=== PATIENT | female | born 1940 | race Caucasian/White ===

== ENCOUNTER 2019-02-01 17:12 | Emergency (ER) | payer MEDICARE ==
[~2019-02-01] VITALS: Ht 160 cm; Wt 81.1 kg
--- NOTE | 2019-02-01 17:27 | ED Cardiac General ---
History of Present Illness General Chief Complaint: Cardiac/General Problems Stated Complaint: HR 145 Source: patient Exam Limitations: no limitations (BRANDON BAUTISTA DO) History of Present Illness Date Seen by Provider: Feb 01, 2019 Time Seen by Provider: 17:20 Initial Comments The patient is a pleasant 78-year-old female who presents for evaluation of tachycardia which started earlier today. She reports a history of a similar episode a while ago and states she was given medications which helped reduce her heart rate and she was able to go home. She denies history of atrial fibrillation and does not know what SVT is. She states that she went golfing earlier today and set of coming to the hospital promptly to be evaluated when she noted the increased heart rate. She reports some mild dizziness. She is alert and oriented 4, calm, and appears to be in no distress at this time. She denies chest pain, nausea or vomiting, fevers or chills, diaphoresis, or syncope. She states that she had a heart catheterization 2 years ago which was unremarkable. Severity: mild Activities at Onset: none NTG SL DRY CLEANING MACHINE OPERATOR HELPER: No ASA po DRY CLEANING MACHINE OPERATOR HELPER: No (BRANDON BAUTISTA DO) Allergies and Home Medications Allergies Coded Allergies: No Known Drug Allergies (Unverified , 02/01/19) Home Medications Clopidogrel Bisulfate 75 Mg Tablet, 75 MG PO DAILY Prescribed by: MIKE MELTON on 02/01/191915 Diltiazem HCl 120 Mg Cap.er.24h, 120 MG PO DAILY Prescribed by: MIKE MELTON on 02/01/191915 Patient Home Medication List Home Medication List Reviewed: Yes (BRANDON BAUTISTA DO) Home Medication List Reviewed: Yes (MIKE MELTON MD) Review of Systems Review of Systems Constitutional: no symptoms reported EENTM: No Symptoms Reported Respiratory: No Symptoms Reported Cardiovascular: Palpitations (tachycardia) Gastrointestinal: No Symptoms Reported Genitourinary: No Symptoms Reported Musculoskeletal: no symptoms reported Skin: no symptoms reported Psychiatric/Neurological: No Symptoms Reported Endocrine: No Symptoms Reported Hematologic/Lymphatic: No Symptoms Reported (BRANDON BAUTISTA DO) All Other Systems Reviewed Negative Unless Noted: Yes (BRANDON BAUTISTA DO) Past Jhhgswn-Fijnti-Smoqaj Hx Past Med/Social Hx: Reviewed Nursing Past Med/Soc Hx (BRANDON BAUTISTA DO) Physical Exam Vital Signs Vital Signs - First Documented 02/01/19 02/01/19 17:17 19:20 Temp 36.6 Pulse 124 Resp 18 B/P (MAP) 159/91 (113) Pulse Ox 95 O2 Delivery Room Air (MIKE MELTON MD) Vital Signs Capillary Refill : (BRANDON BAUTISTA DO) Height, Weight, BMI Height: '" Weight: lbs. oz. kg; BMI Method: General Appearance: No Apparent Distress, WD/WN HEENT: PERRL/EOMI, TMs Normal Neck: Full Range of Motion, Normal Inspection, Non Tender, Supple Respiratory: Chest Non Tender, Normal Breath Sounds, No Accessory Muscle Use, No Respiratory Distress Cardiovascular: No Edema, No Murmur, Tachycardia Gastrointestinal: Normal Bowel Sounds, No Pulsatile Mass, Non Tender, Soft Extremity: Normal Capillary Refill, Normal Range of Motion, Non Tender, No Calf Tenderness Neurologic/Psychiatric: Alert, Oriented x3, No Motor/Sensory Deficits, Normal Mood/Affect Skin: Normal Color, Warm/Dry (BRANDON BAUTISTA DO) Progress/Results/Core Measures Results/Orders Lab Results Laboratory Tests Test 02/01/19 17:40 Range/Units White Blood Count 10.1 4.3-11.0 10^3/uL Red Blood Count 4.57 4.35-5.85 10^6/uL Hemoglobin 13.9 11.5-16.0 G/DL Hematocrit 42 35-52 % Mean Corpuscular Volume 93 80-99 FL Mean Corpuscular Hemoglobin 30 25-34 PG Mean Corpuscular Hemoglobin Concent 33 32-36 G/DL Red Cell Distribution Width 13.1 10.0-14.5 % Platelet Count 294 130-400 10^3/uL Mean Platelet Volume 10.0 7.4-10.4 FL Neutrophils (%) (Auto) 51 42-75 % Lymphocytes (%) (Auto) 38 12-44 % Monocytes (%) (Auto) 8 0-12 % Eosinophils (%) (Auto) 2 0-10 % Basophils (%) (Auto) 1 0-10 % Neutrophils # (Auto) 5.2 1.8-7.8 X 10^3 Lymphocytes # (Auto) 3.8 1.0-4.0 X 10^3 Monocytes # (Auto) 0.9 0.0-1.0 X 10^3 Eosinophils # (Auto) 0.2 0.0-0.3 10^3/uL Basophils # (Auto) 0.1 0.0-0.1 10^3/uL Prothrombin Time 12.6 12.2-14.7 SEC INR Comment 0.9 0.8-1.4 Activated Partial Thromboplast Time 29 24-35 SEC Sodium Level 141 135-145 MMOL/L Potassium Level 3.8 3.6-5.0 MMOL/L Chloride Level 106 98-107 MMOL/L Carbon Dioxide Level 24 21-32 MMOL/L Anion Gap 11 5-14 MMOL/L Blood Urea Nitrogen 16 7-18 MG/DL Creatinine 0.94 0.60-1.30 MG/DL Estimat Glomerular Filtration Rate 57 BUN/Creatinine Ratio 17 Glucose Level 143 H 70-105 MG/DL Calcium Level 9.7 8.5-10.1 MG/DL Corrected Calcium 9.8 8.5-10.1 MG/DL Total Bilirubin 0.4 0.1-1.0 MG/DL Aspartate Amino Transf (AST/SGOT) 21 5-34 U/L Alanine Aminotransferase (ALT/SGPT) 15 0-55 U/L Alkaline Phosphatase 73 40-136 U/L Troponin I < 0.30 <0.30 NG/ML Total Protein 7.2 6.4-8.2 GM/DL Albumin 3.9 3.2-4.5 GM/DL (MIKE MELTON MD) My Orders Orders - MIKE MELTON MD Protime With Inr (02/01/19 18:24) Partial Thromboplastin Time (02/01/19 18:24) Magnesium (02/01/19 18:24) Probnp Fs (02/01/19 18:28) Diltiazem Cd 24 Hr Capsule (Cardizem Cd (02/01/19 18:55) (MIKE MELTON MD) Medications Given in ED Current Medications Medications Dose Ordered Sig/Jonny Route Start Time Stop Time Status Last Admin Dose Admin Diltiazem HCl 20 mg ONCE ONCE IVP 02/01/19 17:45 02/01/19 17:46 DC 02/01/19 18:03 20 MG (MIKE MELTON MD) Vital Signs/I&O 02/01/19 02/01/19 17:17 19:20 Temp 36.6 37.0 Pulse 124 80 Resp 18 20 B/P (MAP) 159/91 (113) 143/79 Pulse Ox 95 96 O2 Delivery Room Air (MIKE MELTON MD) Progress Progress Note : Progress Note @1800 - Pt care transferred from Dr. Bautista to Dr. Melton at this time. Cardizem is helping, pt is flipping between NSR and atrial flutter. If she converts to a NSR anticipate discharge home. If not and needs a cardizem gtt she would need observation. (BRANDON BAUTISTA DO) Progress Note #1: Time: 18:00 Progress Note I assumed care of the patient from Dr. Bautista at shift change. Pt received Diltiazem 20 mg IV and is better rate controlled now but still in atrial fibrill ation with fluctuations from 40s to 110s. Labs show a stable CBC without anemia or elevated WBC count. Chemistry stable without elevated troponin. Progress Note #2: Time: 18:44 Progress Note Discussed with Dr. Mcmahan from cardiology and he recommended having the patient take 120 mg or 240 mg of Cardizem orally for her atrial fibrillation. He also recommended being on Eliquis or Xarelto in addition to the aspirin that she was taking. He stated that if she would call the clinic first thing in the morning he could see her either in clinic tomorrow or he is in clinic again on and he could see her either of those days to be seen as an outpatient and continue with work up and treatment for atrial fibrillation. Progress Note #3: Progress Note I updated the patient and she states that she can not take the Eliquis as it makes her short of breath and gives her chest pain. The same thing happened with Warfarin, Xarelto and another blood thinner. She states she is willing to try Plavix along with her aspirin. I updated her about the follow up with Dr. Mcmahan. She is willing to do that. She will take the oral diltiazem for her heart rate. I explained that she has a risk of blood clots with the atrial fibrillation and she argued that while taking the blood thinners she formed blood clots and has scars on her legs from them as well as still short of breath due to the blood thinners. I told her that I could not force her to take any medicine or do any treatment (MIKE MELTON MD) EKG : Comment EKG@1725 - Atrial flutter with rapid ventricular response, rate of 127, normal axis, no acute ischemic findings noted, no STEMI, reviewed and interpreted by myself (BRANDON BAUTISTA DO) Departure Impression Primary Impression: Atrial fibrillation with rapid ventricular response Disposition: HOME, SELF-CARE Condition: Stable Departure-Patient Inst. Decision time for Depature: 19:13 (MIKE MELTON MD) Referrals: GODFREY MCMAHAN MD SELF,LUIS NICHOLE (PCP/Family) Primary Care Physician Patient Instructions: Atrial Fibrillation (DC) Add. Discharge Instructions: Call Dr. Mcmahan in the morning and they could get you in to the clinic to be seen either Friday or and he could work with you and see you for your Atrial Fibrillation. Take the Diltiazem 120 mg daily to help with controlling your heart rate Continue your Full adult strength aspirin daily to help thin your blood. To try and prevent stroke and blood clots from forming you should also take a stronger anticoagulant as well. All discharge instructions reviewed with patient and/or family. Voiced understanding. Scripts Clopidogrel Bisulfate (Plavix) 75 Mg Tablet 75 MG PO DAILY for clot prevention for 30 Days, #30 TAB 0 Refills Prov: MIKE MELTON MD 02/01/19 Diltiazem HCl (Diltiazem 24Hr ER) 120 Mg Cap.er.24h 120 MG PO DAILY for atrial fibrillation for 30 Days, #30 CAP 0 Refills Prov: MIKE MELTON MD 02/01/19 BRANDON BAUTISTA DO Feb 01, 2019 17:27 MIKE MELTON MD Feb 01, 2019 18:24
[2019-02-01] MEDS ORDERED: DILTIAZEM 25 MG/5 ML INJ (CARDIZEM) VIAL IVP ONE (17:45)
[2019-02-01 17:53] LABS: HEMOGLOBIN 13.9 G/DL (11.5-16.0); MEAN CORPUSCULAR HEMOGLOBIN 30 PG (25-34); WHITE BLOOD COUNT 10.1 10^3/uL (4.3-11.0)
[2019-02-01 17:54] LABS: BASOPHILS # (AUTO) 0.1 10^3/uL (0.0-0.1); BASOPHILS % (AUTO) 1 % (0-10); EOSINOPHILS # (AUTO) 0.2 10^3/uL (0.0-0.3); EOSINOPHILS % (AUTO) 2 % (0-10); HEMATOCRIT 42 % (35-52); LYMPHOCYTES # (AUTO) 3.8 X 10^3 (1.0-4.0); LYMPHOCYTES % (AUTO) 38 % (12-44); MEAN CORPUSCULAR HGB CONC 33 G/DL (32-36); MEAN CORPUSCULAR VOLUME 93 FL (80-99); MONOCYTES # (AUTO) 0.9 X 10^3 (0.0-1.0); MONOCYTES % (AUTO) 8 % (0-12); NEUTROPHILS # (AUTO) 5.2 X 10^3 (1.8-7.8); NEUTROPHILS % (AUTO) 51 % (42-75); PLATELET COUNT 294 10^3/uL (130-400); RED CELL DISTRIBUTION WIDTH 13.1 % (10.0-14.5)
[2019-02-01 18:15] LABS: ALANINE AMINOTRANSFERASE 15 U/L (0-55); ALBUMIN 3.9 GM/DL (3.2-4.5); ALKALINE PHOSPHATASE 73 U/L (40-136); BILIRUBIN,TOTAL 0.4 MG/DL (0.1-1.0); BUN/CREATININE RATIO 17; CALCIUM 9.7 MG/DL (8.5-10.1); CARBON DIOXIDE 24 MMOL/L (21-32); CHLORIDE 106 MMOL/L (98-107); CREATININE SERUM 0.94 MG/DL (0.60-1.30); GFR ESTIMATED 57; GLUCOSE 143 MG/DL (70-105); POTASSIUM 3.8 MMOL/L (3.6-5.0); SODIUM 141 MMOL/L (135-145); TOTAL PROTEIN 7.2 GM/DL (6.4-8.2)
[2019-02-01 18:41] LABS: INR 0.9 (0.8-1.4); PROTHROMBIN TIME PATIENT 12.6 SEC (12.2-14.7)
[2019-02-01] MEDS ORDERED: DILTIAZEM 120 MG (CARDIZEM CD) CAP PO STA (18:55)
[2019-02-01] MEDS ORDERED: APIXABAN 5 MG (ELIQUIS) TABLET PO STA (18:55)
[2019-02-01] MEDS ORDERED: DILT-27 PO (19:16)
[2019-02-01] MEDS ORDERED: CLOP75TA69 PO (19:16)
[2019-02-01 19:20] VITALS: BP 143/79
== END 2019-02-01 19:19 | disposition home or self-care (01) ==
LOC: ER FS 17:14
DX: I48.91 Unspecified atrial fibrillation (principal); Z95.9 Presence of cardiac and vascular implant and graft, unspecified
CPT/HCPCS: 36415; 80053; 83735; 84484; 85025; 85610; 85730; 93005

== ENCOUNTER → 2019-02-17 | Outpatient (CLI) | payer MEDICARE ==
[~2019-02-17] MED LIST: CLOP75TA69 PO; DILT-27 PO
== END ==
LOC: CARD 13:39
PROVIDERS: ATTEND Internal Medicine Cardiovascular Disease
DX: I48.92 Unspecified atrial flutter (principal); R94.31 Abnormal electrocardiogram [ECG] [EKG]
CPT/HCPCS: 93306

== ENCOUNTER → 2019-03-23 | Outpatient (CLI) | payer MEDICARE ==
--- NOTE | 2019-03-23 09:52 | Diagnostic Imaging Report ---
INDICATION: Chest heaviness, dyspnea on exertion, sleep disorder and history of smoking FINDINGS: Frontal and lateral views of the chest demonstrate the lungs to be clear. Heart size is upper normal. Vascularity is normal. Minimal calcifications are seen in the aorta. IMPRESSION: There are no acute findings. Dictated by: Dictated on workstation # [id number]
== END ==
LOC: RAD 09:11
PROVIDERS: ATTEND Nurse Practitioner Family
DX: J30.9 Allergic rhinitis, unspecified (principal); G47.10 Hypersomnia, unspecified; Z87.891 Personal history of nicotine dependence
CPT/HCPCS: 71046

== ENCOUNTER → 2019-04-07 | Outpatient (CLI) | payer MEDICARE ==
[~2019-04-07] MED LIST changes: +RT-ALBUTEROL SULF 2.5 MG/3 ML PRE-MIX VIAL INH ONE
== END ==
LOC: RT 14:51
PROVIDERS: ATTEND Nurse Practitioner Family
DX: G47.33 Obstructive sleep apnea (adult) (pediatric) (principal); G47.10 Hypersomnia, unspecified; I48.92 Unspecified atrial flutter; J30.9 Allergic rhinitis, unspecified; Z87.891 Personal history of nicotine dependence; Z98.890 Other specified postprocedural states
CPT/HCPCS: 94060; 94726; 94729

== ENCOUNTER → 2019-05-10 | Outpatient (CLI) | payer MEDICARE ==
[~2019-05-10] MED LIST changes: +CATHETER FLUSH 10 ML SYR IV PRN; +HOLD METFORMIN - RECEIVED CONTRAST 20 ML VIAL IV SCH; +IOHEXOL 350 MG/ML 100 ML (OMNIPAQUE 350) VIAL IV ONE; +NS 100 ML (IVPB) BAG IV ONE; -RT-ALBUTEROL SULF 2.5 MG/3 ML PRE-MIX VIAL INH ONE
[2019-05-10 10:10] LABS: CREATININE SERUM 1.15 MG/DL (0.60-1.30)
--- NOTE | 2019-05-10 10:43 | Diagnostic Imaging Report ---
PROCEDURE: CT angiography of the chest with contrast. TECHNIQUE: Multiple contiguous axial images were obtained through the chest after uneventful bolus administration of intravenous contrast. 3D reconstructed CTA MIP acquisitions were also performed. Auto Exposure Controls were utilized during the CT exam to meet ALARA standards for radiation dose reduction. INDICATION: Chest heaviness and shortness of breath. COMPARISON: No prior studies are available for comparison. FINDINGS: Evaluation of the pulmonary arterial system is without thromboembolism. No filling defects are seen within the central, lobar, or segmental branches. The thoracic aorta is normal in caliber. No dissection is seen. There is no pericardial or pleural fluid. No pulmonary infiltrates are seen. No nodules or masses are detected. The upper abdomen is unremarkable. IMPRESSION: Unremarkable CT angiogram of the chest. There is no evidence of pulmonary embolism or thoracic aortic dissection. Dictated by: Dictated on workstation # [id number]
== END ==
LOC: RAD 09:40
PROVIDERS: ATTEND Nurse Practitioner Family
DX: J45.909 Unspecified asthma, uncomplicated (principal); I48.91 Unspecified atrial fibrillation; Z87.891 Personal history of nicotine dependence
CPT/HCPCS: 36415; 71275; 82565; 84520

== ENCOUNTER → 2019-11-03 | Outpatient (CLI) | payer MEDICARE ==
[~2019-11-03] VITALS: Ht 160 cm; Wt 81.0 kg
[~2019-11-03] MED LIST changes: -HOLD METFORMIN - RECEIVED CONTRAST 20 ML VIAL IV SCH; -IOHEXOL 350 MG/ML 100 ML (OMNIPAQUE 350) VIAL IV ONE; -NS 100 ML (IVPB) BAG IV ONE; +REGADENOSON 0.4 MG/5 ML SYR (LEXISCAN) IV ONE
[2019-11-03 09:07] VITALS: BP 148/84
--- NOTE | 2019-11-03 14:33 | Cardiology Stress Test Report ---
Stress Test Report Date of Procedure/Referring: Date of Procedure: Nov 03, 2019 PCP Godfrey Mcmahan MD Admitting Physician SelfRajesh MD Baseline Heart Rate: 60 Baseline Blood Pressure: Blood Pressure Systolic: 148 Blood Pressure Diastolic: 84 Baseline Vitals Vital Signs Date Time Temp Pulse Resp B/P (MAP) Pulse Ox O2 Delivery O2 Flow Rate FiO2 11/03/19 09:07 57 18 148/84 (105) 99 Baseline EKG: Baseline EKG: normal sinus rhythm Summary After explaining the procedure to the patient, she signed a consent and then brought to the stress nuclear laboratory. Patient received 0.4 mg Lexiscan for stress test, ECG, heart rate and blood pressure were monitored continuously. Resting and stress dose of radio tracer were injected, imaging was acquired and reviewed in short axis, horizontal long axis and vertical long axis views. TID: 1.02 SSS: 14 SDS: 10 EF: 82 1. Patient tolerated Lexiscan well 2. Extracardiac attenuation, reversible ischemia involving the whole anterior wall and anterolateral wall 3. Normal left ventricular size, hyperactive ventricle, EF 82 percent GODFREY MCMAHAN MD Nov 03, 2019 14:32
== END ==
LOC: CARD 07:25
PROVIDERS: ATTEND Internal Medicine Cardiovascular Disease
DX: G47.33 Obstructive sleep apnea (adult) (pediatric) (principal); I48.92 Unspecified atrial flutter
CPT/HCPCS: 78452; 93017; A9502

== ENCOUNTER 2019-11-10 06:56 | Day surgery (SDC) | payer MEDICARE ==
[2019-11-10] VITALS (13 sets, daily range): BP systolic 121–174; BP diastolic 58–78
[~2019-11-10] VITALS: Ht 160 cm; Wt 81.0 kg
[~2019-11-10 06:56] MED LIST changes: -CATHETER FLUSH 10 ML SYR IV PRN; -REGADENOSON 0.4 MG/5 ML SYR (LEXISCAN) IV ONE
[2019-11-10] MEDS ORDERED: NS IV 1000 ML 1,000 ML IV SCH ×2 (07:00→09:18)
--- OUTSIDE RECORDS SUMMARY | 2019-11-10 07:00 | XMS REPORT | Continuity of Care Document ---
Author Organization Unknown Address Unknown Phone Unavailable Allergies Active Description Code Type Severity Reaction Onset Reported/Identified Relationship to Patient Clinical Status Yes apixaban [id number] Drug Allergy Severe Shortness of Br 02/01/2019 Yes rivaroxaban [id number] Drug Aller gy Severe Shortness of Br 02/01/2019 Yes No Known Drug Allergies [id number] Drug Allergy Unknown N/A 02/01/2019 Medications There is no data. 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 92 UNSPECIFIED ATRIAL FLUTTER 02/19/2019 GODFREY ROSS MD Ot R94. 31 ABNORMAL ELECTROCARDIOGRAM [ECG] [EKG] 03/10/2019 GODFREY ROSS MD Ot I48. 92 UNSPECIFIED ATRIAL FLUTTER 03/10/2019 GODFREY ROSS MD Ot R94. 31 ABNORMAL ELECTROCARDIOGRAM [ECG] [EKG] 03/22/2019 GODFREY ROSS MD Ot I48. 92 UNSPECIFIED ATRIAL FLUTTER 03/22/2019 GODFREY ROSS MD Ot R94. 31 ABNORMAL ELECTROCARDIOGRAM [ECG] [EKG] 03/26/2019 ANDREI FRANK SULFUR BURNER Ot G47.10 HYPERSOMNIA, UNSPECIFIED 03/26/2019 ANDREI FRANK SULFUR BURNER Ot J30.9 ALLERGIC RHINITIS, UNSPECIFIED 03/26/2019 ANDREI FRANK SULFUR BURNER Ot Z87.891 PERSONAL HISTORY OF NICOTINE DEPENDENCE 03/29/2019 ANDREI FRANK E SULFUR BURNER Ot G47.10 HYPERSOMNIA, UNSPECIFIED 03/29/2019 ANDREI FRANK SULFUR BURNER Ot J30.9 ALLERGIC RHINITIS, UNSPECIFIED 03/29/2019 ANDREI FRANK SULFUR BURNER Ot Z87.891 PERSONAL HISTORY OF NICOTINE DEPENDENCE 04/06/2019 MONIKA, ANDREI E SULFUR BURNER Ot G47.10 HYPERSOMNIA, UNSPECIFIED 04/09/2019 MONIKA, ANDREI E SULFUR BURNER Ot G47.10 HYPERSOMNIA, UNSPECIFIED 04/09/2019 MONIKA, ANDREI E SULFUR BURNER Ot G47.33 OBSTRUCTIVE SLEEP APNEA (ADULT) (PEDIATR 04/09/2019 MONIKA, ANDREI E SULFUR BURNER Ot I48.92 UNSPECIFIED ATRIAL FLUTTER 04/09/2019 MONIKA, ANDREI E SULFUR BURNER Ot J30.9 ALLERGIC RHINITIS, UNSPECIFIED 04/09/2019 MONIKA, ANDREI E SULFUR BURNER Ot Z87.891 PERSONAL HISTORY OF NICOTINE DEPENDENCE 04/09/2019 MONIKA, ANDREI E SULFUR BURNER Ot Z98.890 OTHER SPECIFIED POSTPROCEDURAL STATES 04/23/2019 MONIKA, ANDREI E SULFUR BURNER Ot G47.10 HYPERSOMNIA, UNSPECIFIED 04/23/2019 MONIKA, ANDREI E SULFUR BURNER Ot J30.9 ALLERGIC RHINITIS, UNSPECIFIED 04/23/2019 MONIKA, ANDREI E SULFUR BURNER Ot Z87.891 PERSONAL HISTORY OF NICOTINE DEPENDENCE 04/27/2019 MONIKA, ANDREI E SULFUR BURNER Ot G47.10 HYPERSOMNIA, UNSPECIFIED 04/27/2019 MONIKA, ANDREI E SULFUR BURNER Ot G47.33 OBSTRUCTIVE SLEEP APNEA (ADULT) (PEDIATR 04/27/2019 MONIKA, ANDREI E SULFUR BURNER Ot I48.92 UNSPECIFIED ATRIAL FLUTTER 04/27/2019 MONIKA, ANDREI E SULFUR BURNER Ot J30.9 ALLERGIC RHINITIS, UNSPECIFIED 04/27/2019 MONIKA, ANDREI E SULFUR BURNER Ot Z87.891 PERSONAL HISTORY OF NICOTINE DEPENDENCE 04/27/2019 MONIKA, ANDREI E SULFUR BURNER Ot Z98.890 OTHER SPECIFIED POSTPROCEDURAL STATES 04/29/2019 MONIKA, ANDREI E SULFUR BURNER Ot G47.10 HYPERSOMNIA, UNSPECIFIED 04/29/2019 MONIKA, ANDREI E SULFUR BURNER Ot J30.9 ALLERGIC RHINITIS, UNSPECIFIED 04/29/2019 MONIKA, ANDREI E SULFUR BURNER Ot Z87.891 PERSONAL HISTORY OF NICOTINE DEPENDENCE 05/10/2019 MONIKA, ANDREI E SULFUR BURNER Ot G47.10 HYPERSOMNIA, UNSPECIFIED 05/10/2019 MONIKA, ANDREI E SULFUR BURNER Ot G47.33 OBSTRUCTIVE SLEEP APNEA (ADULT) (PEDIATR 05/10/2019 MONIKA, ANDREI E SULFUR BURNER Ot I48.92 UNSPECIFIED ATRIAL FLUTTER 05/10/2019 MONIKA, ANDREI E SULFUR BURNER Ot J30.9 ALLERGIC RHINITIS, UNSPECIFIED 05/10/2019 MONIKA, ANDREI E SULFUR BURNER Ot Z87.891 PERSONAL HISTORY OF NICOTINE DEPENDENCE 05/10/2019 MONIKA, ANDREI E SULFUR BURNER Ot Z98.890 OTHER SPECIFIED POSTPROCEDURAL STATES 05/12/2019 MONIKA, ANDREI E SULFUR BURNER Ot I48.91 UNSPECIFIED ATRIAL FIBRILLATION 05/12/2019 MONIKA, ANDREI E SULFUR BURNER Ot J45.909 UNSPECIFIED ASTHMA, UNCOMPLICATED 05/12/2019 MONIKA, ANDREI E SULFUR BURNER Ot Z87.891 PERSONAL HISTORY OF NICOTINE DEPENDENCE 06/03/2019 MONIKA, ANDREI E SULFUR BURNER Ot I48.91 UNSPECIFIED ATRIAL FIBRILLATION 06/03/2019 MONIKA, ANDREI E SULFUR BURNER Ot J45.909 UNSPECIFIED ASTHMA, UNCOMPLICATED 06/03/2019 MONIKA, ANDREI E SULFUR BURNER Ot Z87.891 PERSONAL HISTORY OF NICOTINE DEPENDENCE 06/17/2019 MONIKA, ANDREI E SULFUR BURNER Ot I48.91 UNSPECIFIED ATRIAL FIBRILLATION 06/17/2019 MONIKA, ANDREI E SULFUR BURNER Ot J45.909 UNSPECIFIED ASTHMA, UNCOMPLICATED 06/17/2019 MONIKA, ANDREI E SULFUR BURNER Ot Z87.891 PERSONAL HISTORY OF NICOTINE DEPENDENCE 11/05/2019 GODFREY ROSS MD Ot G47. 33 OBSTRUCTIVE SLEEP APNEA (ADULT) (PEDIATR 11/05/2019 GODFREY ROSS MD Ot I48. 92 UNSPECIFIED ATRIAL FLUTTER Procedures There is no data. Results Test Result Range Complete blood count (CBC) with automate d white blood cell (WBC) differential - 02/01/19 17:40 Blood leukocytes automated count (number/volume) 10.1 10*3/uL 4.3-11.0 Blood erythrocytes automated count (number/volume) 4.57 10*6/uL 4.35-5.85 Venous blood hemoglobin measurement (mass/volume) 13.9 g/dL 11.5-16.0 Blood hematocrit (volume fraction) 42 % 35-52 Automated erythrocyte mean corpuscular volume 93 [ foz_us] 80-99 Automated erythrocyte mean corpuscular h emoglobin (mass per erythrocyte) 30 pg 25-34 Automated erythrocyte mean corpuscular h emoglobin concentration measurement (mass/volume) 33 g/dL 32-36 Automated erythrocyte distribution width ratio 13. 1 % 10.0- 14.5 Automated blood platelet count (count/volume) 294 10*3/uL 130-400 Automated blood platelet mean volume measurement 10.0 [foz_us] 7.4-10.4 Automated blood neutrophils/100 leukocytes 51 % 42-75 Automated blood lymphocytes/100 leukocytes 38 % 12-44 Blood monocytes/100 leukocytes 8 % 0-12 Automated blood eosinophils/100 leukocytes 2 % 0-10 Automated blood basophils/100 leukocytes 1 % 0-10 Blood neutrophils automated count (number/volume) 5.2 10*3 1.8-7.8 Blood lymphocytes automated count (number/volume) 3.8 10*3 1.0-4.0 Blood monocytes automated count (number/volume) 0. 9 10*3 0.0-1.0 Automated eosinophil count 0.2 10*3/uL 0 .0-0.3 Automated blood basophil count (count/volume) 0.1 10*3/uL 0.0-0.1 Comprehensive metabolic panel - 02/01/19 17:40 Serum or plasma sodium measurement (moles/volume) 141 mmol/L 135-145 Serum or plasma potassium measurement (moles/volume) 3.8 mmol/L 3.6-5.0 Serum or plasma chloride measurement (moles/volume) 106 mmol/L 98-107 Carbon dioxide 24 mmol/L 21-32 Serum or plasma anion gap determination (moles/volume) 11 mmol/L 5-14 Serum or plasma urea nitrogen measurement (mass/volume ) 16 mg/dL 7-18 Serum or plasma creatinine measurement (mass/volume) 0.94 mg/dL 0.60-1.30 Serum or plasma urea nitrogen/creatinine mass ratio 17 NRG Serum or plasma creatinine measurement w ith calculation of estimated glomerular filtration rate 57 NRG Serum or plasma glucose measurement (mass/volume) 143 mg/dL 70-105 Serum or plasma calcium measurement (mass/volume) 9.7 mg/dL 8.5-10.1 Serum or plasma total bilirubin measurement (mass/volu me) 0.4 mg/dL 0.1-1.0 Serum or plasma alkaline phosphatase sheila surement (enzymatic activity/volume) 73 U/L 40-136 Serum or plasma aspartate aminotransfera se measurement (enzymatic activity/volume) 21 U/L 5-34 Serum or plasma alanine aminotransferase measurement (enzymatic activity/volume) 15 U/L 0-55 Serum or plasma protein measurement (mass/volume) 7.2 g/dL 6.4-8.2 Serum or plasma albumin measurement (mass/volume) 3.9 g/dL 3.2-4.5 CALCIUM CORRECTED 9.8 mg/dL 8.5-10.1 TROPONIN I FS - 02/01/19 17:40 TROPONIN I FS < 0.30 <0.30 PT panel in platelet poor plasma by coag ulation assay - 02/01/19 17:40 Prothrombin time (PT) in platelet poor plasma by coagu lation assay 12.6 s 12.2-14.7 INR in platelet poor plasma or blood by coagulation as say 0.9 0.8-1.4 Activated partial thromboplastin time (a PTT) in platelet poor plasma bycoagulation assay - 02/01/19 17:40 Activated partial thromboplastin time (a PTT) in platelet poor plasma bycoagulation assay 29 s 24-35 Magnesium - 02/01/19 17:40 Magnesium 2.1 mg/dL 1.6-2.4 Encounters ACCT No. Visit Date/Time Discharge Status Pt. Type Provider Facility Loc./Unit Complaint [id number] 10/22/2018 14:45:00 10/22/2018 23:59: 59 [facility] Outpatient SHRUTHI, LUIS Mckenna [facility] [place] [id number] 11/03/2019 07:25:00 23:59:59 CLS Outpatient GODFREY ROSS MD [facility] CARD AFIB,CHEST PAIN IN ADULT,DYSPNEA,FREDRICK [id number] 05/10/2019 09:40:00 23:59:59 CLS Outpatient ANDREI FRANK APRN [facility] RAD DYSPNEA,HX OF SMOKING,ATRIAL FLUTTER [id number] 04/07/2019 14:51:00 019 23:59:59 [facility] Outpatient ANDREI FRANK APRN [facility] RT SUSPECTED SLEEP APNEA,SNORING [id number] 03/23/2019 09:11:00 23:59:59 CLS Outpatient ANDREI FRANK APRN [facility] RAD DYSPNEA [id number] 02/17/2019 13:39:00 23:59:59 CLS Outpatient GODFREY ROSS MD [facility] CARD DYSPNEA ON EXERTION,[place] ST PAIN,ABN EKG [id number] 02/01/2019 17:14:00 19:19:00 DIS Emergency LINH NICHOLE, MIKE Knutson [facility] ER FS HR 145 [id number] 11/10/2019 06:56:[address] Outpatient GODFREY ROSS MD [facility] CATH ABNORMAL STRESS,CP,SOB,PAF
[2019-11-10] MEDS ORDERED: HEParin (CATH LAB) 2,000 ML IV ONE (07:01)
[2019-11-10] MEDS ORDERED: NS IV 1000 ML 1,000 ML ONE (07:01)
[2019-11-10] MEDS ORDERED: LIDOCAINE 1% INJ 20 ML 20 ML VIAL ONE (07:01)
[2019-11-10 07:32] LABS: HEMOGLOBIN 14.1 G/DL (11.5-16.0); MEAN PLATELET VOLUME 9.9 FL (7.4-10.4); RED CELL DISTRIBUTION WIDTH 14.2 % (10.0-14.5); WHITE BLOOD COUNT 7.6 10^3/uL (4.3-11.0)
[2019-11-10] MEDS ORDERED: RIVA20TA PO (07:45)
[2019-11-10] MEDS ORDERED: C,E,1CAP PO (07:45)
[2019-11-10] MEDS ORDERED: MULT-1136 PO (07:45)
[2019-11-10] MEDS ORDERED: CHOL1CRY2 MC (07:45)
[2019-11-10] MEDS ORDERED: ASCO-129 PO (07:45)
[2019-11-10] MEDS ORDERED: DRON400T2 PO (07:45)
[2019-11-10 07:49] LABS: BILIRUBIN,URINE NEGATIVE (NEGATIVE); CLARITY,URINE CLEAR; COLOR,URINE YELLOW; GLUCOSE, URINE (UA) NEGATIVE (NEGATIVE); KETONES,URINE NEGATIVE (NEGATIVE); LEUKOCYTE ESTERASE ,URINE 1+ (NEGATIVE); NITRITE,URINE NEGATIVE (NEGATIVE); PH,URINE 6.5 (5-9); PROTEIN,URINE NEGATIVE (NEGATIVE)
--- NOTE | 2019-11-10 07:49 | Diagnostic Imaging Report ---
INDICATION: Chest pain and shortness of breath. COMPARISON: 03/23/2019. FINDINGS: Heart size and configuration stable. No vascular congestion, failure pattern, infiltrate, effusion or pneumothorax. IMPRESSION: Stable chest. Dictated by: Dictated on workstation # [id number]
[2019-11-10 08:01] LABS: BACTERIA,URINE TRACE /HPF
[2019-11-10 08:09] LABS: ALBUMIN 4.1 GM/DL (3.2-4.5); BILIRUBIN,TOTAL 0.5 MG/DL (0.1-1.0); CALCIUM 9.3 MG/DL (8.5-10.1); CREATININE SERUM 1.03 MG/DL (0.60-1.30); POTASSIUM 4.2 MMOL/L (3.6-5.0); TOTAL PROTEIN 7.2 GM/DL (6.4-8.2)
[2019-11-10 08:15] LABS: INR 0.9 (0.8-1.4); PROTHROMBIN TIME PATIENT 12.9 SEC (12.2-14.7)
--- OUTSIDE RECORDS SUMMARY | 2019-11-10 08:25 | XMS REPORT | Continuity of Care Document ---
Author Organization Unknown Address Unknown Phone Unavailable Allergies Active Description Code Type Severity Reaction Onset Reported/Identified Relationship to Patient Clinical Status Yes apixaban [id number] Drug Allergy Severe Shortness of Br 02/01/2019 Yes rivaroxaban [id number] Drug Aller gy Severe Shortness of Br 02/01/2019 Yes No Known Drug Allergies [id number] Drug Allergy Unknown N/A 02/01/2019 Medications There [...] ABNORMAL ELECTROCARDIOGRAM [ECG] [EKG] 03/26/2019 ANDREI FRANK SENIOR ASIC DESIGN ENGINEER Ot G47.10 HYPERSOMNIA, UNSPECIFIED 03/26/2019 ANDREI FRANK SENIOR ASIC DESIGN ENGINEER Ot J30.9 ALLERGIC RHINITIS, UNSPECIFIED 03/26/2019 ANDREI FRANK SENIOR ASIC DESIGN ENGINEER Ot Z87.891 PERSONAL HISTORY OF NICOTINE DEPENDENCE 03/29/2019 ANDREI FRANK E SENIOR ASIC DESIGN ENGINEER Ot G47.10 HYPERSOMNIA, UNSPECIFIED 03/29/2019 ANDREI FRANK SENIOR ASIC DESIGN ENGINEER Ot J30.9 ALLERGIC RHINITIS, UNSPECIFIED 03/29/2019 ANDREI FRANK SENIOR ASIC DESIGN ENGINEER Ot Z87.891 PERSONAL HISTORY OF NICOTINE DEPENDENCE 04/06/2019 MONIKA, ANDREI E SENIOR ASIC DESIGN ENGINEER Ot G47.10 HYPERSOMNIA, UNSPECIFIED 04/09/2019 MONIKA, ANDREI E SENIOR ASIC DESIGN ENGINEER Ot G47.10 HYPERSOMNIA, UNSPECIFIED 04/09/2019 MONIKA, ANDREI E SENIOR ASIC DESIGN ENGINEER Ot G47.33 OBSTRUCTIVE SLEEP APNEA (ADULT) (PEDIATR 04/09/2019 MONIKA, ANDREI E SENIOR ASIC DESIGN ENGINEER Ot I48.92 UNSPECIFIED ATRIAL FLUTTER 04/09/2019 MONIKA, ANDREI E SENIOR ASIC DESIGN ENGINEER Ot J30.9 ALLERGIC RHINITIS, UNSPECIFIED 04/09/2019 MONIKA, ANDREI E SENIOR ASIC DESIGN ENGINEER Ot Z87.891 PERSONAL HISTORY OF NICOTINE DEPENDENCE 04/09/2019 MONIKA, ANDREI E SENIOR ASIC DESIGN ENGINEER Ot Z98.890 OTHER SPECIFIED POSTPROCEDURAL STATES 04/23/2019 MONIKA, ANDREI E SENIOR ASIC DESIGN ENGINEER Ot G47.10 HYPERSOMNIA, UNSPECIFIED 04/23/2019 MONIKA, ANDREI E SENIOR ASIC DESIGN ENGINEER Ot J30.9 ALLERGIC RHINITIS, UNSPECIFIED 04/23/2019 MONIKA, ANDREI E SENIOR ASIC DESIGN ENGINEER Ot Z87.891 PERSONAL HISTORY OF NICOTINE DEPENDENCE 04/27/2019 MONIKA, ANDREI E SENIOR ASIC DESIGN ENGINEER Ot G47.10 HYPERSOMNIA, UNSPECIFIED 04/27/2019 MONIKA, ANDREI E SENIOR ASIC DESIGN ENGINEER Ot G47.33 OBSTRUCTIVE SLEEP APNEA (ADULT) (PEDIATR 04/27/2019 MONIKA, ANDREI E SENIOR ASIC DESIGN ENGINEER Ot I48.92 UNSPECIFIED ATRIAL FLUTTER 04/27/2019 MONIKA, ANDREI E SENIOR ASIC DESIGN ENGINEER Ot J30.9 ALLERGIC RHINITIS, UNSPECIFIED 04/27/2019 MONIKA, ANDREI E SENIOR ASIC DESIGN ENGINEER Ot Z87.891 PERSONAL HISTORY OF NICOTINE DEPENDENCE 04/27/2019 MONIKA, ANDREI E SENIOR ASIC DESIGN ENGINEER Ot Z98.890 OTHER SPECIFIED POSTPROCEDURAL STATES 04/29/2019 MONIKA, ANDREI E SENIOR ASIC DESIGN ENGINEER Ot G47.10 HYPERSOMNIA, UNSPECIFIED 04/29/2019 MONIKA, ANDREI E SENIOR ASIC DESIGN ENGINEER Ot J30.9 ALLERGIC RHINITIS, UNSPECIFIED 04/29/2019 MONIKA, ANDREI E SENIOR ASIC DESIGN ENGINEER Ot Z87.891 PERSONAL HISTORY OF NICOTINE DEPENDENCE 05/10/2019 MONIKA, ANDREI E SENIOR ASIC DESIGN ENGINEER Ot G47.10 HYPERSOMNIA, UNSPECIFIED 05/10/2019 MONIKA, ANDREI E SENIOR ASIC DESIGN ENGINEER Ot G47.33 OBSTRUCTIVE SLEEP APNEA (ADULT) (PEDIATR 05/10/2019 MONIKA, ANDREI E SENIOR ASIC DESIGN ENGINEER Ot I48.92 UNSPECIFIED ATRIAL FLUTTER 05/10/2019 MONIKA, ANDREI E SENIOR ASIC DESIGN ENGINEER Ot J30.9 ALLERGIC RHINITIS, UNSPECIFIED 05/10/2019 MONIKA, ANDREI E SENIOR ASIC DESIGN ENGINEER Ot Z87.891 PERSONAL HISTORY OF NICOTINE DEPENDENCE 05/10/2019 MONIKA, ANDREI E SENIOR ASIC DESIGN ENGINEER Ot Z98.890 OTHER SPECIFIED POSTPROCEDURAL STATES 05/12/2019 MOINKA, ANDREI E SENIOR ASIC DESIGN ENGINEER Ot I48.91 UNSPECIFIED ATRIAL FIBRILLATION 05/12/2019 MONIKA, ANDREI E SENIOR ASIC DESIGN ENGINEER Ot J45.909 UNSPECIFIED ASTHMA, UNCOMPLICATED 05/12/2019 MONIKA, ANDRIE E SENIOR ASIC DESIGN ENGINEER Ot Z87.891 PERSONAL HISTORY OF NICOTINE DEPENDENCE 06/03/2019 MONIKA, ANDREI E SENIOR ASIC DESIGN ENGINEER Ot I48.91 UNSPECIFIED ATRIAL FIBRILLATION 06/03/2019 MONIKA, ANDREI E SENIOR ASIC DESIGN ENGINEER Ot J45.909 UNSPECIFIED ASTHMA, UNCOMPLICATED 06/03/2019 MONIKA, ANDREI E SENIOR ASIC DESIGN ENGINEER Ot Z87.891 PERSONAL HISTORY OF NICOTINE DEPENDENCE 06/17/2019 MONIKA, ANDREI E SENIOR ASIC DESIGN ENGINEER Ot I48.91 UNSPECIFIED ATRIAL FIBRILLATION 06/17/2019 MONIKA, ANDREI E SENIOR ASIC DESIGN ENGINEER Ot J45.909 UNSPECIFIED ASTHMA, UNCOMPLICATED 06/17/2019 MONIKA, ANDREI E SENIOR ASIC DESIGN ENGINEER Ot Z87.891 PERSONAL HISTORY OF NICOTINE DEPENDENCE [...] Status Pt. Type Provider Facility Loc./Unit Complaint [id number] 10/22/2018 14:45:00 10/22/2018 23:59: 59 [facility] Outpatient SHRUTHI, LUIS Mckenna [facility] [id number] 11/03/2019 07:25:00 23:59:59 [facility] Outpatient GODFREY ROSS MD [facility] CARD AFIB,CHEST PAIN IN ADULT,DYSPNEA,FREDRICK [id number] 05/10/2019 09:40:00 23:59:59 CLS Outpatient ANDREI FRANK APRN [facility] RAD DYSPNEA,HX OF SMOKING,ATRIAL FLUTTER [id number] 04/07/2019 14:51:00 019 23:59:59 [facility] Outpatient ANDREI FRANK APRN [facility] RT SUSPECTED SLEEP APNEA,SNORING [id number] 03/23/2019 09:11:00 23:59:59 C[facility] Outpatient ANDREI FRANK APRN [facility] RAD DYSPNEA [id number] 02/17/2019 13:39:00 23:59:59 CLS Outpatient GODFREY ROSS MD [facility] CARD DYSPNEA ON EXERTION,[address] ST PAIN,ABN EKG [id number] 02/01/2019 17:14:00 19:19:00 DIS Emergency LINH NICHOLE, MIKE Knutson [facility] ER FS HR 145 [id number] 11/10/2019 06:56:[address] Outpatient GODFREY ROSS MD [facility] CATH ABNORMAL STRESS,CP,SOB,PAF
[2019-11-10] MEDS ORDERED: MIDAZOLAM 5 MG/5 ML (VERSED) VIAL ONE (08:37)
[2019-11-10] MEDS ORDERED: fentaNYL INJECTION 100 MCG/2 ML AMP ONE (08:37)
--- NOTE | 2019-11-10 08:54 | Cardiac Procedure Note-CS/ASA ---
Pre-Procedure Note Pre-Op Procedure Note H&P Reviewed The H&P was reviewed, patient examined and no changes noted. Date H&P Reviewed: Nov 10, 2019 Time H&P Reviewed: 08:54 Conscious Sedation Pre-Proced Time 08:54 ASA Score 3 For ASA 3 and 4: Consider anesthesia and medical clearance. Also, for patients with a history of failed moderate sedation consider anesthesia. Airway Lungs Heart ASA score ASA 1: a normal healthy patient ASA 2: a patient with a mild systemic disease (mid diabetes, controlled hypertension, obesity x ASA 3: a patient with a severe systemic disease that limits activity (angina, COPD, prior Myocardial infarction) ASA 4: a patient with an incapacitating disease that is a constant threat to life (CHF, renal failure) ASA 5: a moribund patient not expected to survive 24 hrs. (ruptured aneurysm) ASA 6: a declared brain- patient whose organs are being harvested. For emergent operations, add the letter E after the classification Mallampati Classification Grade 3 Sedation Plan Analgesia, Amnesia, Plan communicated to team members, Discussed options with patient/fam, Discussed risks with patient/fam The patient is an appropriate candidate to undergo the planned procedure, sedation, and anesthesia. The patient immediately re-assessed prior to indication. GODFREY ROSS MD Nov 10, 2019 08:54
[2019-11-10] MEDS ORDERED: ADENOSINE 3 MG/1 ML (ADENOSCAN) 30ML VIAL IV ONE (09:05)
[2019-11-10] MEDS ORDERED: HEParin 1000 UNIT/ML (10ML VIAL) FOR BOLUS ONE (09:05)
[2019-11-10] MEDS ORDERED: ATOR10TA PO (09:20)
--- NOTE | 2019-11-10 09:20 | Discharge Inst-Post CATH ---
Discharge Inst-CATH/EP Problems Reviewed?: Yes Post Cardiac Cath/EP D/C Inst Follow Up/Plan Appointment with Dr. Mcmahan's office in 4 weeks <b>CARDIAC CATH/EP PROCEDURE DISCHARGE INSTRUCTIONS</b> ACTIVITY * Go Home directly and rest. * Limit activity of the leg (or wrist if it was used) for 7 days including aerobics, swimming, jogging, bicycling, etc. * Restrict stair-climbing for 7 days if possible, if not, climb up with your non-cath leg, then bring together on the same step. * Avoid lifting, pushing, pulling or excessive movement of the affected extremity for 7 days. * Customary sexual activity may be resumed after 2 days-use caution not to use a position that strains or causes pain to the affected extremity. * No driving for 24 hours. * NO SMOKING. * Avoid straining for bowel movements for 7 days. * Gentle walking on level ground is allowed. * Returning to work will depend on the type of procedure and the results. Your doctor will discuss this with you. CALL YOUR DOCTOR FOR ANY OF THE FOLLOWING: *If bleeding from the puncture site occurs- Apply gentle pressure to site with clean cloth and call your doctor or EMS. * If a knot or lump forms under the skin, increases in size, or causes pain. * If bruising appears to be worsening or moving further down your leg instead of disappearing. * Temperature above 101 F. CARE OF YOUR GROIN INCISION; * Bruising or purple discoloration of the skin near the puncture site is common. * You may shower only, no bathtub bathing for 5 days. Be careful to avoid slipping as your leg may feel stiff. * If a closure device was used on your femoral artery, please see the attached guide regarding care of the device and your leg. * Leave dressing on FOR 24 hours. CARE OF YOUR WRIST INCISION; * Bruising or purple discoloration of the skin near the puncture site is common. * You may shower. * DO NOT submerge wrist. * Leave dressing on FOR 24 hours. GODFREY MCMAHAN MD Nov 10, 2019 09:20
--- NOTE | 2019-11-10 09:24 | Cardiac Cath Report ---
Cardiac Cath Report Physician (s)/Elastic Assembler (s) Physician GODFREY ROSS MD Pre-Procedure Diagnosis Pre-Procedure Diagnosis: Coronary artery disease Post-Procedure Note Procedure Start Date: Nov 10, 2019 Name of Procedure: Left heart catheterization FFR to LAD Findings/Procedure Note PROCEDURE NOTE: 79 years old lady with history of hypertension, pulmonary embolism, coronary artery disease, had an abnormal stress test scheduled for cardiac catheteri zation possible PTCA. After explaining the procedure to the patient, all pros and cons were explained, all questions were answered. The patient signed the consent and then she was placed on the cardiac catheterization laboratory. Groin was prepped SL fashion local anesthesia was used. Sheath placed in the right femoral artery. Winter right and left catheter were used to access the coronary system. Pigtail was used to access the left ventricular cavity. Left ventriculogram was not done, pressure was measured Patient has abnormal angle of the ostium of the LAD with questionable stenosis, she was given 3000 units of heparin, FL guide was used at the left coronary system then FFR was measured and it was 0.95 at baseline, after adenosine challenge it was 0.93. No complication noted. At the end of the procedure the sheath was removed. Closure device was used FINDINGS: Hemodynamics LV 150/12, end-diastolic pressure of 12 Aorta 141/51 mean of 85 ANATOMY: Left Main is free of obstructive disease, very short, almost absent with 2 separate ostium of the LAD and circumflex artery Left Anterior Descending has 90 angle at its ostium suggestive of obstructive disease, there is mild disease at the midportion, FFR was not significant Left Circumflex has mild disease nonobstructive disease Right Coronory Artery has mild disease nonobstructive disease LV Gram was not done, LV pressure was measured CONCLUSION: 1. Mild ostial and mid LAD stenosis, nonobstructive disease, no significant gradient with FFR 2. Otherwise mild coronary artery disease nonobstructive disease 3. Normal left ventricular end-diastolic pressure DISCUSSION AND RECOMMENDATION: Medical therapy is recommended, patient had hyperlipidemia started on Lipitor Anesthesia Type: Conscious Sedation Estimated blood loss (mL): 25 ml Contrast Amount: 57 ml Total Radiation Dose: 399 mGy Post-Procedure Diagnosis Post-operative diagnosis: Chest pain Coronary artery disease Hypertension Hyperlipidemia GODFREY ROSS MD Nov 10, 2019 09:24
[2019-11-10] MEDS ORDERED: PATIENT MAY USE OWN MEDS, ALL PO SCH (09:30)
== END 2019-11-10 14:55 | disposition home or self-care (01) ==
LOC: CATH 06:56 → SDC 10:04 → CATH 14:55
PROVIDERS: ATTEND Internal Medicine Cardiovascular Disease
DX: I25.10 Atherosclerotic heart disease of native coronary artery without angina pectoris (principal); I48.92 Unspecified atrial flutter; I10 Essential (primary) hypertension; E78.5 Hyperlipidemia, unspecified; J45.909 Unspecified asthma, uncomplicated; G47.33 Obstructive sleep apnea (adult) (pediatric); I65.23 Occlusion and stenosis of bilateral carotid arteries; R94.39 Abnormal result of other cardiovascular function study; G47.10 Hypersomnia, unspecified; E66.9 Obesity, unspecified; Z68.31 Body mass index [BMI] 31.0-31.9, adult; Z79.899 Other long term (current) drug therapy; Z79.51 Long term (current) use of inhaled steroids; Z88.8 Allergy status to other drugs, medicaments and biological substances; Z87.891 Personal history of nicotine dependence; Z90.710 Acquired absence of both cervix and uterus
CPT/HCPCS: 71045; 80053; 80061; 81000; 85027; 85610; 85730; 87081; 87088; 93458; 93571; C1760; C1769; C1887; C1894; 36415

== ENCOUNTER → 2021-05-21 | Outpatient (CLI) | payer MEDICARE ==
[~2021-05-21] MED LIST changes: +ASCO-129 PO; +ATOR10TA PO; +C,E,1CAP PO; +CHOL1CRY2 MC; +DRON400T6 PO; +MULT-1136 PO; +RIVA20TA PO
--- NOTE | 2021-05-21 15:10 | Diagnostic Imaging Report ---
INDICATION: Joint pain COMPARISON: None FINDINGS: 3 views of the RIGHT knee joint demonstrate no acute fracture or dislocation. Mild degenerative joint disease is seen in all 3 compartments. No focal osseous lesions are seen. No significant joint effusion is seen. The surrounding soft tissue structures are unremarkable. There are no radiopaque foreign bodies. IMPRESSION: Mild degenerative joint disease. Dictated by: Dictated on workstation # [id number]
== END ==
LOC: RAD FS 14:47
PROVIDERS: ATTEND Family Medicine
DX: M17.11 Unilateral primary osteoarthritis, right knee (principal)
CPT/HCPCS: 73562